=== PATIENT | female | born 1960 | race Caucasian/White ===

== ENCOUNTER 2017-02-04 08:54 | Day surgery (SDC) | payer MEDICAID ==
[~2017-02-04] VITALS: Ht 163.8 cm; Wt 75.5 kg
[~2017-02-04 08:54] MED LIST: ASPI81 PO; CARV12 PO; OMEP20 PO; SERT100T12 PO; SODIUM CHLORIDE 0.9% 1,000 ML IV ONE
[2017-02-04] MEDS ORDERED: SODIUM CHLORIDE 0.9% 1,000 ML IV ONE (09:00)
== END 2017-02-04 12:17 | disposition home or self-care (01) ==
LOC: SURGERY 08:54
PROVIDERS: ATTEND Internal Medicine Gastroenterology
DX: K22.2 Esophageal obstruction (principal); K44.9 Diaphragmatic hernia without obstruction or gangrene; K21.9 Gastro-esophageal reflux disease without esophagitis; I10 Essential (primary) hypertension; F41.9 Anxiety disorder, unspecified; F17.210 Nicotine dependence, cigarettes, uncomplicated; Z79.01 Long term (current) use of anticoagulants; Z98.890 Other specified postprocedural states; Z86.59 Personal history of other mental and behavioral disorders
CPT/HCPCS: 43249; J7030